=== PATIENT | female | born 1930 | race Caucasian/White ===

== ENCOUNTER 2018-05-02 05:38 | Outpatient (CLI) | payer MEDICARE ==
[~2018-05-02] VITALS: Ht 154.9 cm; Wt 48.2 kg
[~2018-05-02 05:38] MED LIST: ACETAMINOPHEN325 MG PO; CLARITIN 10 MG10 MG PO; DYAZIDE 37.5/251 CAP PO; EVISTA60 MG PO; FLUTICASONE PRO16 GM NS; LEVAQUIN750 MG PO; SYNTHROID75 MCG PO; TUMS500 MG PO; XANAX0.25 MG PO
[2018-05-02 06:08] LABS: BASOPHILS 0.9 % (0-2); EOSINOPHILS 0.4 % (0-7); HEMATOCRIT 30.4 % (36.0-48.0); HEMOGLOBIN 10.2 g/dL (12-16); IMMATURE GRANULOCYTES 0.2 % (0-5); LYMPHOCYTES 13.9 % (15-50); MCH 34.3 pg (26.0-34.0); MCHC 33.6 g/dL (31.0-37.0); MCV 102.4 fL (80.0-100.0); MEAN PLATELET VOLUME 9.1 fL (7.4-10.4); MONOCYTES 7.8 % (2-11); NEUTROPHILS 76.8 % (40-80); PLATELET COUNT 245 10x3/uL (130-400); RBC 2.97 10x6/uL (4.00-5.40); RDW 18.7 % (11.5-14.5); WBC 4.6 10x3/uL (4.8-10.8)
[2018-05-02 06:14] LABS: APTT 30.3 SECONDS (22.8-39.4); PROTIME 12.7 SECONDS (11.6-15.0)
[2018-05-02 06:26] LABS: ANION GAP 11.8 mmol/L (8-16); CALCIUM 9.4 mg/dL (8.5-10.1); CARBON DIOXIDE 31.2 mmol/L (21.0-32.0); CREATININE - SERUM 1.5 mg/dL (0.6-1.3)
[2018-05-02] MEDS ORDERED: KISQALI (06:55)
[2018-05-02] MEDS ORDERED: TUMS X-STR300 MG (06:56)
[2018-05-02] MEDS ORDERED: TOZAL SOFTGEL1 EACH (06:56)
[2018-05-02 07:04] VITALS: BP 126/54; Ht 154.9 cm; Wt 48.2 kg
--- NOTE | 2018-05-02 09:52 | NUR ---
6929 SEE POST PROCEDURE CHECKLIST FOR VITAL SIGN TRENDS
--- NOTE | 2018-05-02 10:03 | NUR ---
1000 DRESSING CDI NO HEMATOMA NO DISTRESS CALL LIGHT AT SIDE.
--- NOTE | 2018-05-02 10:57 | NUR ---
1057 PORT CHEST XRAY DONE.
--- NOTE | 2018-05-02 11:38 | NUR ---
1130 CXR NO PNEUMOTHORAX FINGER FOOD DIET SERVED.
== END 2018-05-02 12:30 | disposition home or self-care (01) ==
LOC: D.SP 05:38 → D.CT 08:00 → D.SP 08:00
PROVIDERS: General Practice
DX: R91.8 Other nonspecific abnormal finding of lung field (principal); Z01.812 Encounter for preprocedural laboratory examination; Z85.3 Personal history of malignant neoplasm of breast

== ENCOUNTER 2018-05-16 05:40 | Outpatient (CLI) | payer MEDICARE ==
[~2018-05-16] VITALS: Ht 154.9 cm; Wt 48.2 kg
[~2018-05-16 05:40] MED LIST changes: +KISQALI; +TOZAL SOFTGEL1 EACH; +TUMS X-STR300 MG
[2018-05-16 06:14] LABS: ANION GAP 13.1 mmol/L (8-16); CALCIUM 9.5 mg/dL (8.5-10.1); CARBON DIOXIDE 30.7 mmol/L (21.0-32.0); CREATININE - SERUM 1.6 mg/dL (0.6-1.3); POTASSIUM - SERUM 3.8 mmol/L (3.5-5.1)
[2018-05-16 06:21] VITALS: BP 166/65; Ht 154.9 cm; Wt 48.2 kg
[2018-05-16 07:17] LABS: APTT 28.6 SECONDS (22.8-39.4)
[2018-05-16 07:18] LABS: INR 1.02 (0.85-1.17); PROTIME 12.9 SECONDS (11.6-15.0)
[2018-05-16 07:36] LABS: EOSINOPHILS 1.4 % (0-7); HEMATOCRIT 33.9 % (36.0-48.0); HEMOGLOBIN 11.2 g/dL (12-16); IMMATURE GRANULOCYTES 0.5 % (0-5); LYMPHOCYTES 17.1 % (15-50); MCH 34.9 pg (26.0-34.0); MCV 105.6 fL (80.0-100.0); MEAN PLATELET VOLUME 9.7 fL (7.4-10.4); MONOCYTES 7.9 % (2-11); NEUTROPHILS 72.1 % (40-80); RBC 3.21 10x6/uL (4.00-5.40); RDW 17.9 % (11.5-14.5); WBC 4.2 10x3/uL (4.8-10.8)
[2018-05-16 07:37] LABS: PLATELET COUNT 371 10x3/uL (130-400)
--- NOTE | 2018-05-16 08:50 | NUR ---
REC'D FROM SPECIALS VIA BED. DRESSING CDI TO UPPER BACK. NPO FOR CXR. NO C/O.
--- NOTE | 2018-05-16 09:15 | NUR ---
XRAY HERE FOR F/U CXR POST LUNG BX. ANOTHER CXR IN TWO HOURS. FAMILY AT BEDSIDE.
--- NOTE | 2018-05-16 10:05 | NUR ---
CXR CLEAR. ICE CHIPS GIVEN TO PATIENT.
--- NOTE | 2018-05-16 11:05 | NUR ---
XRAY HERE TO REPEAT POST PROCEDURE CXR.
--- NOTE | 2018-05-16 11:55 | NUR ---
CXR CLEAR. REGULAR TRAY ORDERED.
--- NOTE | 2018-05-16 12:15 | NUR ---
TOLERATED DIET. IV DC'D WITH CATHETER INTACT. WRITTEN AND VERBAL DC INST. GIVEN TO PT. VERBALIZED UNDERSTANDING. WAITING FOR RIDE. DRESSING CDI.
--- NOTE | 2018-05-16 12:40 | NUR ---
DC'D HOME WITH FAMILY VIA PRIVATE VEHICLE. TAKEN TO VEHICLE VIA WC. STABLE AT TIME OF DC.
== END 2018-05-16 12:40 | disposition home or self-care (01) ==
LOC: D.SP 05:40 → D.CT 08:00 → D.SP 08:00 → D.CT 10:30 → D.SP 12:40
PROVIDERS: Specialist; ATTEND Internal Medicine Hematology & Oncology
DX: J92.9 Pleural plaque without asbestos (principal); Z01.812 Encounter for preprocedural laboratory examination

== ENCOUNTER → 2018-07-23 10:25 | Outpatient (CLI) | payer MEDICARE ==
[2018-07-23 11:37] LABS: CREATININE - SERUM 1.6 mg/dL (0.6-1.3)
== END | disposition home or self-care (01) ==
LOC: D.CT 10:25
PROVIDERS: ATTEND Internal Medicine Pulmonary Disease
DX: R91.8 Other nonspecific abnormal finding of lung field (principal)

== ENCOUNTER → 2019-01-24 09:01 | Outpatient (CLI) | payer MEDICARE | END | disposition home or self-care (01) | LOC: D.CT 09:01 | PROVIDERS: ATTEND Internal Medicine Pulmonary Disease | DX: R91.8 Other nonspecific abnormal finding of lung field (principal) ==